=== PATIENT | male | born 1980 | race Two or more races ===

== ENCOUNTER 2020-12-20 21:34 | Emergency (ER) | payer OTHER ==
[~2020-12-20] VITALS: Ht 175.3 cm; Wt 95.3 kg
[2020-12-21 02:16] VITALS: BP 151/101
== END 2020-12-21 03:12 | disposition home or self-care (01) ==
LOC: ER 21:36
DX: F41.9 Anxiety disorder, unspecified (principal); R42 Dizziness and giddiness; Z56.3 Stressful work schedule; Z20.822 Contact with and (suspected) exposure to COVID-19
CPT/HCPCS: 36415; 87426